=== PATIENT | female | born 1945 | race Caucasian/White ===

== ENCOUNTER 2018-07-12 13:37 | Emergency (ER) | payer OTHER ==
[2018-07-12 13:44] VITALS: TEMP 97.7; BMI 20.5
--- NOTE | 2018-07-12 13:47 | PDOC ---
History of Present Illness - General Chief Complaint: Shortness of Breath Stated Complaint: SOB Time Seen by Provider: 07/12/18 13:47 - History of Present Illness Initial Comments: 72 year female with 60 pack years of smoking presenting with occasional SOB for the past week. States that she has had worsened cough over the past week, sightly different than her smoker's cough and occasional episodes of SOB while asleep. States that she has a gradually cut down her cigarette usage this week and actually hasn't fully inhaled a cigarette in the past three days. Denies fevers, chills, nausea, vomiting, diarrhea, headache, chest pain, or other symptoms. Currently patient is asymptomatic. 07/12/18 15:10 Past History - Past Medical History Allergies/Adverse Reactions: Allergies Allergy/AdvReac Type Severity Reaction Status Date / Time morphine AdvReac Mild Verified 07/12/18 13:40 Home Medications: Ambulatory Orders No Home Medications 0 dose .ROUTE UTDICT 05/17/13 Albuterol Sulfate 0.042% [Ventolin 0.042% (Half-Strength) -] 1 neb PO Q4H PRN # 1 inhaler 07/12/18 predniSONE [Deltasone -] 40 mg PO DAILY 4 Days #4 tablet 07/12/18 COPD: No - Surgical History Appendectomy: Yes Cholecystectomy: Yes - Immunization History Immunization Up to Date: Yes - Suicide/Smoking/Psychosocial Hx Smoking Status: No Smoking History: Current every day smoker Number of Cigarettes Smoked Daily: 20 Information on smoking cessation initiated: No Hx Alcohol Use: No Drug/Substance Use Hx: No Review of Systems - Review of Systems Constitutional: No: Chills, Diaphoresis, Fever HEENTM: No: Blurred Vision, Tearing Respiratory: Yes: Cough, Shortness of Breath. No: SOB with Exertion, Stridor, Wheezing Cardiac (ROS): No: Chest Pain, Edema, Irregular Heart Rate ABD/GI: No: Diarrhea, Nausea, Vomiting : No: Burning, Dysuria Musculoskeletal: No: Joint Pain, Joint Swelling Integumentary: No: Lesions, Lumps, Pallor, Pruritus Neurological: No: Headache, Numbness, Paresthesia Psychiatric: No: Anxiety, Depression Endocrine: No: Flushing, Intolerance to Cold, Increased Urine Hematologic/Lymphatic: No: Anemia, Blood Clots, Easy Bleeding, Easy Bruising *Physical Exam - Vital Signs Last Vital Signs Temp Pulse Resp BP Pulse Ox 97.7 F 78 18 121/69 97 07/12/18 13:41 07/12/18 13:41 07/12/18 13:41 07/12/18 13:41 07/12/18 13:41 - Physical Exam General Appearance: Yes: Nourished, Appropriately Dressed. No: Apparent Distress HEENT: positive: EOMI, L[place], Normal ENT Inspection, Normal Voice Neck: positive: Trachea midline, Normal Thyroid, Supple. negative: Tender, Rigid Respiratory/Chest: negative: Chest Tender, Lungs Clear, Normal Breath Sounds, Respiratory Distress Cardiovascular: positive: Regular Rhythm, Regular Rate Gastrointestinal/Abdominal: positive: Normal Bowel Sounds, Flat, Soft. negative : Tender Lymphatic: negative: Adenopathy, Tenderness Musculoskeletal: positive: Normal Inspection. negative: Decreased Range of Motion Extremity: positive: Normal Capillary Refill, Normal Inspection, Normal Range of Motion. negative: Tender Integumentary: positive: Normal Color, Dry, Warm Neurologic: positive: pet food deboner II-XII NML intact, Fully Oriented, Alert, Normal Mood/ Affect, Normal Response, Motor Strength 5/5 ED Treatment Course - LABORATORY CBC & Chemistry Diagram: 07/12/18 15:10 07/12/18 15:10 Medical Decision Making - Medical Decision Making 72 year old female with 60 packs year of smoking presenting with occasional SOB and slightly worsened cough in the setting of smoking cessation. Labs WNL, EKG showing , CXR showing hyperventilated lungs bilaterally consistent with COPD, and patient feeling slightly better after DuoNebs x 3. Spoke to Dr. Tomlinson to see if he was OK with DC but we were unable to get inand discharged with inhaler pump and PCP follow up. EKG 71, MD 146, QRS 88, QTc 439, normal axis, and no ST-T wave changes. 07/12/18 16:36 Sent albuterol inhaler and 4 days of deltasone to [facility]. 07/12/18 17:17 *DC/Admit/Observation/Transfer Diagnosis at time of Disposition: COPD exacerbation - Discharge Dispostion Disposition: HOME Condition at time of disposition: Improved Decision to Admit order: No - Referrals Referrals: eSmaj Tomlinson MD [Primary Care Provider] - - Patient Instructions Printed Discharge Instructions: DI for Chronic Obstructive Pulmonary Disease Additional Instructions: You likely have COPD from your many years of smoking. Please use the inhaler as needed when you feel short of breath or have trouble breathing. Please follow up with Dr. Tomlinson within 3-4 days and he will refer you to a lung doctor if he feels that you need to. Please come back to the ED if you feel worsening SOB, chest pain., fevers, chills, worsening cough, or other concerning symptoms. Please quit smoking and use Chantix or nicotine replacement to help you. - Post Discharge Activity
[2018-07-12] MEDS ORDERED: ALBUTEROL SO4 2.5/IPRATROPIUM 0.5 INH SOL 3 ML VIAL.NEB. NEB ONE ×3 (15:09→16:11)
[2018-07-12 15:23] LABS: BASO % 1.3 % (0-2.0); HEMATOCRIT 46.2 % (32.4-45.2); HEMOGLOBIN 15.4 GM/dL (10.7-15.3); LYMPH % 22.2 % (8-40); MCH 29.5 pg (25.7-33.7); MCHC 33.2 g/dl (32.0-36.0); MEAN CELL VOLUME 88.8 fl (80-96); MEAN PLT VOLUME 8.5 fl (7.5-11.1); MONO % 6.1 % (3.8-10.2); NEUT % 65.4 % (42.8-82.8); PLATELET COUNT 231 K/MM3 (134-434); RBC 5.21 M/mm3 (3.60-5.2); RDW 13.9 % (11.6-15.6); WHITE BLOOD COUNT 7.6 K/mm3 (4.0-10.0)
[2018-07-12 15:46] LABS: ALBUMIN 3.5 g/dl (3.4-5.0); ALK PHOS 87 U/L (45-117); ANION GAP 6 MMOL/L (8-16); BILIRUBIN,TOTAL 0.2 mg/dL (0.2-1); BLOOD UREA NITROGEN 25 mg/dL (7-18); CALCIUM 8.8 mg/dL (8.5-10.1); CHLORIDE 106 mmol/L (98-107); CO2 27 mmol/L (21-32); CREATININE 0.8 mg/dL (0.55-1.3); GLUCOSE,RANDOM 104 mg/dL (74-106); POTASSIUM 4.1 mmol/L (3.5-5.1); SGOT/AST 19 U/L (15-37); SGPT/ALT 19 U/L (13-61); SODIUM 139 mmol/L (136-145); TOT PROT 7.3 g/dl (6.4-8.2)
--- NOTE | 2018-07-12 15:51 | PDOC ---
Attending Attestation - Resident Resident Name: Ash Lee - ED Attending Attestation I have performed the following: I have examined & evaluated the patient, The case was reviewed & discussed with the resident, I agree w/resident's findings & plan - HPI HPI: 07/12/18 17:51 72 YOF, with a significant past medical history of COPD, long time smoker who presents to the emergency department with, worsening shortness of breath x 3 days, a/w productive cough. As per patient, her symptoms onset 3 days ago and worsen at night and lying down with an associated cough. The patient notes attempting to cut down on her cigarette smoking, over the past 2-3 days. She denies recent fevers, chills, headache or dizziness. She denies recent nausea, vomit, diarrhea or constipation. She denies recent dysuria, frequency, urgency or hematuria. She denies recent chest pain. Allergies: Morphine. Past surgical history: Appendectomy. cholecystectomy. Social history: Smoker (15 per day for 60 years). Denies EtOH use and recreational drug use. Primary Care Physician: Dr. Tomlinson - Physicial Exam PE: 07/12/18 17:52 NAD, well appearing, MMM, nl conjunctiva, anicteric; neck supple, no JVD. +mild basilar crackles, no retractions. clear otherwise. RRR, abdomen soft nontender. WHITTAKER x4, no focal neuro deficits. No peripheral edema. normal color for ethnicity , WWP. - Medical Decision Making 07/12/18 17:51 72 YOF, with a significant past medical history of COPD, long time smoker who presents to the emergency department with, worsening shortness of breath x 3 days, a/w productive cough. vitals wnl, normal sats and respirations CXR clear with COPD lungs, no infiltrate or edema. labs and lytes wnl. trop neg, BNP neg, so unlikely cardiomyopathy or CHF doubt ACS EKG nonischemic, normal segments, no ST derangements to suggest ischemia.. given duonebs x 3, well appearing, PO steroids pt remains well, no respiratory distress and amenable for discharge home smoking cessation counseling.\ PRN albuterol inh and medrol dosepak for copd flare d/w Dr Tomlinson. agree with plan, discharge in stable condition, Pt to be discharged in stable condition. Patient and family made aware of impression and plan, return precautions discussed (including but not limited to worsening pain or symptoms), fevers, or signs of infection, chest pain, respiratory distress, inability to tolerate oral intake, dehydration, syncope, or neurologic changes). Follow up with PMD and/or specialist as recommended, follow up information provided, take medications as instructed for duration of time. continue with supportive care, avoid triggers and precipitants. All questions answered to patient's satisfaction and expressed understanding and comfort with this. 07/12/18 17:52 Heart Score/ECG Review - ECG Impressions Normal ECG: Yes Comment:: 07/12/18 17:04 EKG normal sinus rhythm, no interval abnormalities, narrow QRS, ST and T wave segments and morphology normal. Nonspecific T wave abnormalities in lead II only , noncontiguous, nonischemic 07/12/18 17:04
[2018-07-12] MEDS: ALBUTEROL SO4 2.5/IPRATROPIUM 0.5 INH SOL 3 ML VIAL.NEB. NEB SCH ×6 (16:17→17:37)
[2018-07-12] MEDS ORDERED: predniSONE 20 MG TABLET (UD) ONE (17:14)
[2018-07-12] MEDS ORDERED: predniSONE 20 MG TABLET (UD) PO SCH (17:15)
[2018-07-12 17:29] LABS: PLATELET ESTIMATE ADEQUATE
[2018-07-12 17:36] VITALS: BP 140/76; PULSE 76
--- NOTE | 2018-07-14 11:08 | EKG ---
Test Reason : Blood Pressure : / mmHG Vent. Rate : 071 BPM Atrial Rate : 071 BPM P-R Int : 146 ms QRS Dur : 088 ms QT Int : 404 ms P-R-T Axes : 079 063 080 degrees QTc Int : 439 ms NORMAL SINUS RHYTHM NORMAL ECG WHEN COMPARED WITH ECG OF 31-AUG-1999 20:58, NO SIGNIFICANT CHANGE WAS FOUND Confirmed by JOSAFAT GLEASON MD ([id number]) on 07/14/2018 11:08:37 AM Referred By: Confirmed By:JOSAFAT GLEASON MD
== END 2018-07-12 17:38 | disposition home or self-care (01) ==
LOC: JER 13:37
PROC: 3E0F7GC Introduction of Other Therapeutic Substance into Respiratory Tract, Via Natural or Artificial Opening (ICD-10-PCS; principal; 2018-07-12)
DX: J44.1 Chronic obstructive pulmonary disease with (acute) exacerbation (principal); F17.210 Nicotine dependence, cigarettes, uncomplicated
CPT/HCPCS: 36415; 71046-TC-FY; 80053; 83880; 84484; 85025; 93005; 93010; 94640; 99282-25; J7620

== ENCOUNTER 2021-06-27 16:15 | Observation (INO) | payer OTHER ==
[~2021-06-27 16:15] MED LIST: ALBUTEROL SO4 0.083% IH SOL 2.5 MG/3 ML VIAL.NEB. NEB PRN
[2021-06-27 16:19] VITALS: BMI 21.4
[2021-06-27] MEDS ORDERED: ASPIRIN 81 MG CHEWABLE TABLETS PO ONE (20:45)
[2021-06-27] MEDS ORDERED: ASPIRIN 81 MG CHEWABLE TABLETS ONE (20:48)
[2021-06-27 21:20] LABS: BASO % 0.7 % (0-2.0); HEMATOCRIT 38.8 % (32.4-45.2); HEMOGLOBIN 13.1 GM/dL (10.7-15.3); LYMPH % 27.2 % (8-40); MCH 29.8 pg (25.7-33.7); MCHC 33.9 g/dl (32.0-36.0); MEAN PLT VOLUME 8.4 fl (7.5-11.1); NEUT % 60.1 % (42.8-82.8); PLATELET COUNT 229 10^3/uL (134-434); RBC 4.41 M/mm3 (3.60-5.2); RDW 14.4 % (11.6-15.6); WHITE BLOOD COUNT 7.9 K/mm3 (4.0-10.0)
[2021-06-27 21:26] LABS: VENOUS BASE EXCESS 1.3 mmol/L (-2-2); VENOUS O2 SATURATION 32.5 % (70-80); VENOUS PCO2 53.8 mmHg (38-52); VENOUS PH 7.336 (7.310-7.410)
[2021-06-27 21:33] LABS: INR 1.02 (0.83-1.09); PROTHROMBIN TIME (PATIENT) 12.5 SEC (9.7-13.0)
[2021-06-27 21:35] LABS: ACTIVATED PTT 47.3 SECONDS (25.2-36.5)
[2021-06-27 21:38] LABS: CHLORIDE 104 mmol/L (98-107); SODIUM 140 mmol/L (136-145)
[2021-06-27 21:40] LABS: ALBUMIN 3.7 g/dl (3.4-5.0); CALCIUM 9.1 mg/dL (8.5-10.1)
[2021-06-27 21:41] LABS: ANION GAP 7 MMOL/L (8-16); CO2 28 mmol/L (21-32); GLUCOSE,RANDOM 86 mg/dL (74-106)
[2021-06-27 21:43] LABS: SGPT/ALT 19 U/L (13-61)
[2021-06-27 21:44] LABS: CREATININE 0.6 mg/dL (0.55-1.3); SGOT/AST 20 U/L (15-37)
[2021-06-27 21:45] LABS: BILIRUBIN,TOTAL 0.4 mg/dL (0.2-1); TOT PROT 7.4 g/dl (6.4-8.2)
[2021-06-27 21:46] LABS: ALK PHOS 103 U/L (45-117)
[2021-06-27 21:48] LABS: N-TERMINAL BNP 166.4 pg/ml (5-450)
[2021-06-28] MEDS ORDERED: ASPIRIN COATED 81 MG TABLET.EC ONE (08:46)
[2021-06-28] MEDS ORDERED: metoPROLOL SUCCINATE 25 MG TAB.SR.24H (FP) ONE (08:46)
[2021-06-28] MEDS ORDERED: VALSARTAN 80 MG TABLET ONE (08:47)
[2021-06-28] MEDS ORDERED: PT OWN MED DRAWER 7, Y5N ONE ×2 (08:47→21:30)
[2021-06-28] MEDS ORDERED: ALBUTEROL SO4 0.083% IH SOL 2.5 MG/3 ML VIAL.NEB. NEB ONE (08:56)
[2021-06-28] MEDS: ASPIRIN COATED 81 MG TABLET.EC PO SCH (09:00)
[2021-06-28] MEDS: metoPROLOL SUCCINATE 25 MG TAB.SR.24H (FP) PO SCH (09:00)
[2021-06-28] MEDS: VALSARTAN 80 MG TABLET PO SCH (09:00)
[2021-06-28] MEDS: NICOTINE 21 MG/24 HOURS TOPICAL PATCH TD SCH (10:11)
[2021-06-28] MEDS: TIOTROPIUM BROMIDE 2.5 MCG (SPIRIVA) RESPIMAT INHALER IH SCH (14:47)
[2021-06-28] MEDS: BUDESONIDE/FORMETEROL FUMARATE 160/4.5 mcg INHALER IH SCH ×2 (14:47→23:07)
[2021-06-29] MEDS ORDERED: REGADENOSON 0.4 MG/5 ML PRE-FILLED SYRINGE IVPUSH ONE ×2 (08:06→12:00)
[2021-06-29 08:53] LABS: CHLORIDE 110 mmol/L (98-107); SODIUM 141 mmol/L (136-145)
[2021-06-29 08:55] LABS: CALCIUM 9.3 mg/dL (8.5-10.1)
[2021-06-29 08:56] LABS: ANION GAP 5 MMOL/L (8-16); BLOOD UREA NITROGEN 18.6 mg/dL (7-18); CO2 27 mmol/L (21-32); GLUCOSE,RANDOM 103 mg/dL (74-106)
[2021-06-29 08:59] LABS: CREATININE 0.7 mg/dL (0.55-1.3)
[2021-06-29] MEDS: VALSARTAN 80 MG TABLET PO SCH (12:59)
[2021-06-29] MEDS: ASPIRIN COATED 81 MG TABLET.EC PO SCH (12:59)
[2021-06-29] MEDS: NICOTINE 21 MG/24 HOURS TOPICAL PATCH TD SCH (13:00)
[2021-06-29] MEDS: metoPROLOL SUCCINATE 25 MG TAB.SR.24H (FP) PO SCH (13:00)
[2021-06-29] MEDS: TIOTROPIUM BROMIDE 2.5 MCG (SPIRIVA) RESPIMAT INHALER IH SCH (13:03)
[2021-06-29] MEDS: BUDESONIDE/FORMETEROL FUMARATE 160/4.5 mcg INHALER IH SCH (13:03)
[2021-06-29 17:54] VITALS: BP 125/75; PULSE 72; TEMP 98.5
[2021-06-29] MEDS ORDERED: ATORVASTATIN CA 20 MG TABLET (FP) PO SCH (22:00)
== END 2021-06-29 18:29 | disposition home or self-care (01) ==
LOC: JER 16:15 → JERBED 23:16 → J4W 06-28 20:28
PROVIDERS: ADMIT Internal Medicine; ATTEND Family Medicine
PROC: 3E0F7GC Introduction of Other Therapeutic Substance into Respiratory Tract, Via Natural or Artificial Opening (ICD-10-PCS; principal; 2021-06-27)
PROC: 3E033GC Introduction of Other Therapeutic Substance into Peripheral Vein, Percutaneous Approach (ICD-10-PCS; 2021-06-27)
DX: J44.1 Chronic obstructive pulmonary disease with (acute) exacerbation (principal); J45.901 Unspecified asthma with (acute) exacerbation; I25.10 Atherosclerotic heart disease of native coronary artery without angina pectoris; I11.9 Hypertensive heart disease without heart failure; F17.210 Nicotine dependence, cigarettes, uncomplicated; Z88.6 Allergy status to analgesic agent
CPT/HCPCS: 36415; 71046-TC-FY; 78452-TC; 80048; 80053; 80061; 82550; 82803; 83036; 83880; 84439; 84443; 84484; 85025; 85610; 85730; 93005; 93010; 93017; 94640; 96374; 99285-25; A9502; C9803; G0378; J2785; U0003; U0005

== ENCOUNTER 2023-06-11 04:03 | Inpatient (IN) | payer OTHER ==
[2023-06-11 04:12] VITALS: BMI 19.7
[2023-06-11] MEDS ORDERED: methylPREDNISolone 2 MG TABLET PO ONE (04:36)
[2023-06-11] MEDS ORDERED: AZITHROMYCIN 500 MG TABLET PO ONE (04:37)
[2023-06-11] MEDS ORDERED: methylPREDNISolone NA SUCC 125 MG/2 ML VIAL IVPUSH ONE (04:39)
[2023-06-11] MEDS ORDERED: ACETAMINOPHEN 1000 MG/100 ML BAG IVPB ONE (04:41)
[2023-06-11] MEDS ORDERED: AZITHROMYCIN 500 MG TABLET ONE (04:50)
[2023-06-11 04:51] LABS: BASO % 0.5 % (0-2.0); EOS % 2.6 % (0-4.5); HEMATOCRIT 39.8 % (32.4-45.2); HEMOGLOBIN 13.2 GM/dL (10.7-15.3); LYMPH % 4.6 % (8-40); MCH 28.6 pg (25.7-33.7); MCHC 33.2 g/dl (32.0-36.0); MEAN CELL VOLUME 85.9 fl (80-96); MONO % 5.8 % (3.8-10.2); NEUT % 86.5 % (42.8-82.8); PLATELET COUNT 189 10^3/uL (134-434); RBC 4.63 M/mm3 (3.60-5.2); RDW 14.6 % (11.6-15.6); WHITE BLOOD COUNT 7.5 K/mm3 (4.0-10.0)
[2023-06-11] MEDS ORDERED: ACETAMINOPHEN INJECTION 100 ML IVPB ONE (04:51)
[2023-06-11] MEDS ORDERED: methylPREDNISolone NA SUCC 125 MG/2 ML VIAL ONE (04:51)
[2023-06-11 04:58] LABS: INR 1.11 (0.83-1.09); PROTHROMBIN TIME (PATIENT) 12.9 SEC (9.7-13.0)
[2023-06-11 05:01] LABS: ACTIVATED PTT 52.8 SECONDS (25.2-36.5)
[2023-06-11] MEDS: ALBUTEROL SO4 2.5/IPRATROPIUM 0.5 INH SOL 3 ML VIAL.NEB. NEB SCH ×2 (05:03→05:40)
[2023-06-11 05:12] LABS: POTASSIUM 3.8 mmol/L (3.5-5.1)
[2023-06-11 05:14] LABS: CALCIUM 8.5 mg/dL (8.5-10.1)
[2023-06-11 05:15] LABS: ALBUMIN 3.6 g/dl (3.4-5.0); MAGNESIUM 1.8 mg/dL (1.8-2.4)
[2023-06-11 05:18] LABS: CREATININE 0.8 mg/dL (0.55-1.3)
[2023-06-11 05:20] LABS: BILIRUBIN,TOTAL 0.3 mg/dL (0.2-1)
[2023-06-11] MEDS ORDERED: ALBUTEROL SO4 0.083% IH SOL 2.5 MG/3 ML VIAL.NEB. NEB ONE ×2 (06:18→06:22)
[2023-06-11 06:30] LABS: EPI CELLS 5 /uL (0-25.1); HYALINE CASTS 0 /uL (0-3.1); URINE APPEARANCE CLEAR; URINE BACTERIA 16 /uL (0-1359); URINE BILIRUBIN NEGATIVE (NEGATIVE); URINE COLOR YELLOW; URINE GLUCOSE (UA) NEGATIVE (NEGATIVE); URINE KETONE NEGATIVE (NEGATIVE); URINE LEUK ESTERASE TRACE (NEGATIVE); URINE NITRITE NEGATIVE (NEGATIVE); URINE PROTEIN NEGATIVE (NEGATIVE); URINE RBC 36 /uL (0-23.9); URINE UROBILINOGEN 0.2 mg/dL (0.2-1.0); URINE WBC 17 /uL (0-25.8)
[2023-06-11] MEDS ORDERED: CLOPIDOGREL BISULFATE 75 MG TABLET (FP) ONE (11:26)
[2023-06-11] MEDS ORDERED: VALSARTAN 80 MG TABLET ONE (11:26)
[2023-06-11] MEDS ORDERED: ASPIRIN 81 MG CHEWABLE TABLETS ONE (11:26)
[2023-06-11] MEDS ORDERED: PANTOPRAZOLE 40 MG TABLET PO ONE (11:26)
[2023-06-11] MEDS ORDERED: metoPROLOL SUCCINATE 25 MG TAB.SR.24H (FP) PO ONE (11:26)
[2023-06-11] MEDS: BUDESONIDE/FORMETEROL FUMARATE 160/4.5 mcg INHALER IH SCH ×2 (11:49→21:53)
[2023-06-11] MEDS: CLOPIDOGREL BISULFATE 75 MG TABLET (FP) PO SCH (11:50)
[2023-06-11] MEDS: ASPIRIN 81 MG CHEWABLE TABLETS PO SCH (11:50)
[2023-06-11] MEDS: PANTOPRAZOLE 40 MG TABLET PO SCH (11:50)
[2023-06-11] MEDS: DEXAMETHASONE SOD PHOSPHATE 4 MG/1 ML VIAL IVPUSH SCH (11:50)
[2023-06-11] MEDS ORDERED: REMDESIVIR 200 MG in SODIUM CHLORIDE 250 ML IVPB ONE (12:00)
[2023-06-11] MEDS: metoPROLOL SUCCINATE 25 MG TAB.SR.24H (FP) PO SCH (13:29)
[2023-06-11] MEDS: VALSARTAN 80 MG TABLET PO SCH (13:29)
[2023-06-11] MEDS: ATORVASTATIN CA 20 MG TABLET (FP) PO SCH (21:53)
[2023-06-12 08:30] LABS: HEMATOCRIT 35.7 % (32.4-45.2); HEMOGLOBIN 11.7 GM/dL (10.7-15.3); LYMPH % 7.2 % (8-40); MCH 28.2 pg (25.7-33.7); MCHC 32.7 g/dl (32.0-36.0); MEAN CELL VOLUME 86.3 fl (80-96); MONO % 5.5 % (3.8-10.2); NEUT % 87.3 % (42.8-82.8); PLATELET COUNT 194 10^3/uL (134-434); RBC 4.14 M/mm3 (3.60-5.2); RDW 14.6 % (11.6-15.6); WHITE BLOOD COUNT 11.6 K/mm3 (4.0-10.0)
[2023-06-12 08:53] LABS: CALCIUM 8.7 mg/dL (8.5-10.1)
[2023-06-12 08:54] LABS: ALBUMIN 3.1 g/dl (3.4-5.0); BLOOD UREA NITROGEN 18.2 mg/dL (7-18); MAGNESIUM 2.1 mg/dL (1.8-2.4)
[2023-06-12 08:57] LABS: BILIRUBIN,TOTAL 0.3 mg/dL (0.2-1); CREATININE 0.6 mg/dL (0.55-1.3); TOT PROT 6.3 g/dl (6.4-8.2)
[2023-06-12] MEDS: ASPIRIN 81 MG CHEWABLE TABLETS PO SCH (09:40)
[2023-06-12] MEDS: CLOPIDOGREL BISULFATE 75 MG TABLET (FP) PO SCH (09:40)
[2023-06-12] MEDS: metoPROLOL SUCCINATE 25 MG TAB.SR.24H (FP) PO SCH (09:40)
[2023-06-12] MEDS: PANTOPRAZOLE 40 MG TABLET PO SCH (09:41)
[2023-06-12] MEDS: VALSARTAN 80 MG TABLET PO SCH (09:41)
[2023-06-12] MEDS: NICOTINE 21 MG/24 HOURS TOPICAL PATCH TD SCH (09:41)
[2023-06-12] MEDS: DEXAMETHASONE SOD PHOSPHATE 4 MG/1 ML VIAL IVPUSH SCH (09:41)
[2023-06-12] MEDS: BUDESONIDE/FORMETEROL FUMARATE 160/4.5 mcg INHALER IH SCH ×2 (09:42→21:36)
[2023-06-12] MEDS: REMDESIVIR 100 MG in SODIUM CHLORIDE 250 ML IVPB SCH (11:19)
[2023-06-12] MEDS: ATORVASTATIN CA 20 MG TABLET (FP) PO SCH (21:36)
[2023-06-13 08:57] VITALS: RESP 18
[2023-06-13] MEDS: PANTOPRAZOLE 40 MG TABLET PO SCH (09:29)
[2023-06-13] MEDS: metoPROLOL SUCCINATE 25 MG TAB.SR.24H (FP) PO SCH (09:29)
[2023-06-13] MEDS: CLOPIDOGREL BISULFATE 75 MG TABLET (FP) PO SCH (09:29)
[2023-06-13] MEDS: NICOTINE 21 MG/24 HOURS TOPICAL PATCH TD SCH ×2 (09:29→09:41)
[2023-06-13] MEDS: ASPIRIN 81 MG CHEWABLE TABLETS PO SCH (09:29)
[2023-06-13] MEDS: DEXAMETHASONE SOD PHOSPHATE 4 MG/1 ML VIAL IVPUSH SCH (09:29)
[2023-06-13] MEDS: VALSARTAN 80 MG TABLET PO SCH (09:29)
[2023-06-13] MEDS: BUDESONIDE/FORMETEROL FUMARATE 160/4.5 mcg INHALER IH SCH ×2 (09:30→21:00)
[2023-06-13] MEDS: REMDESIVIR 100 MG in SODIUM CHLORIDE 250 ML IVPB SCH (12:53)
[2023-06-13] MEDS: ATORVASTATIN CA 20 MG TABLET (FP) PO SCH (21:01)
[2023-06-14] MEDS: CLOPIDOGREL BISULFATE 75 MG TABLET (FP) PO SCH (10:04)
[2023-06-14] MEDS: ASPIRIN 81 MG CHEWABLE TABLETS PO SCH (10:04)
[2023-06-14] MEDS: DEXAMETHASONE SOD PHOSPHATE 4 MG/1 ML VIAL IVPUSH SCH (10:04)
[2023-06-14] MEDS: VALSARTAN 80 MG TABLET PO SCH (10:04)
[2023-06-14] MEDS: metoPROLOL SUCCINATE 25 MG TAB.SR.24H (FP) PO SCH (10:04)
[2023-06-14] MEDS: NICOTINE 21 MG/24 HOURS TOPICAL PATCH TD SCH (10:05)
[2023-06-14] MEDS: PANTOPRAZOLE 40 MG TABLET PO SCH (10:05)
[2023-06-14] MEDS: BUDESONIDE/FORMETEROL FUMARATE 160/4.5 mcg INHALER IH SCH (10:14)
[2023-06-14] MEDS: REMDESIVIR 100 MG in SODIUM CHLORIDE 250 ML IVPB SCH (12:52)
[2023-06-14 14:36] VITALS: BP 143/63; PULSE 65; TEMP 98
== END 2023-06-14 16:13 | disposition home or self-care (01) | DRG 178 ==
LOC: JER 04:03 → JERBED 08:50 → J4S 18:42
PROVIDERS: ADMIT Family Medicine; ATTEND Family Medicine
PROC: XW033E5 Introduction of Remdesivir Anti-infective into Peripheral Vein, Percutaneous Approach, New Technology Group 5 (ICD-10-PCS; principal; 2023-06-11)
DX: U07.1 COVID-19 (principal); J44.1 Chronic obstructive pulmonary disease with (acute) exacerbation; I25.10 Atherosclerotic heart disease of native coronary artery without angina pectoris; I10 Essential (primary) hypertension; R31.29 Other microscopic hematuria; F17.210 Nicotine dependence, cigarettes, uncomplicated; R07.89 Other chest pain; E05.90 Thyrotoxicosis, unspecified without thyrotoxic crisis or storm
CPT/HCPCS: 0241U-QW; 36415; 71045-TC-FY; 80053; 81003; 83735; 84439; 84443; 84481; 84484; 85025; 85610; 85730; 86140; 86850; 86900; 86901; 87086; 93005; 93010; 99285-25; C9399